=== PATIENT | female | born 1955 | race Caucasian/White ===

== ENCOUNTER 2018-07-10 10:56 | Emergency (ER) | payer OTHER ==
--- NOTE | 2018-07-10 12:08 | EDPHY ---
H & P Time Seen by Provider: 07/10/18 11:56 HPI/ROS: CHIEF COMPLAINT: Redness to periumbilical region HISTORY OF PRESENT ILLNESS: 63-year-old immunocompetent female visiting from [place], returning in a few days, complaining of 2 days of progressive erythema in the inferior umbilical region. Triage complaint states abdominal pain however patient states that she only has pain over the skin and denies deeper abdominal pain. She specifically denies: Fever, chills, nausea, vomiting, back or flank pain, abnormal bowel movements, flu-like symptoms. PRIMARY CARE PROVIDER:In [place] REVIEW OF SYSTEMS: 10 systems reviewed and negative with the exception of the elements mentioned in the history of present illness PAST MEDICAL & SURGICAL HISTORY: Breast cancer history. Hypertension. Hyperlipidemia SOCIAL HISTORY: Visiting from [place]. Nonsmoker PHYSICAL EXAM (Prior to examination, patient consented to physical exam, hands were washed and my usual and customary physical exam procedures followed) 1) GENERAL: Well-developed, well-nourished, alert and oriented. Appears to be in no acute distress. Smiling, laughing, appears well 2) HEAD: Normocephalic, atraumatic 3) HEENT: Pupils equal, round, reactive to light bilaterally. Sclera anicteric. 4) NECK: Full range of motion, no meningeal signs. 5) LUNGS: Clear auscultation bilaterally, no wheezes, no rhonchi, no retractions. 6) HEART: Regular rate and rhythm, no murmur, no heave, no gallop. 7) ABDOMEN: Erythema and induration the inferior aspect of the umbilicus is noted extending approximately 4 cm in a caudal orientation. No fluctuance. No drainage. No fetid odor. There is no umbilical hernia noted. There is no crepitus. There is no drainage or foul odor. She is tender directly over this only. Otherwise, No guarding, no rebound, no focal tenderness, negative McBurney's, negative Delgado's, negative Rovsing's, negative peritoneal sign, 8) MUSCULOSKELETAL: Moving all extremities, no focal areas of tenderness, no obvious trauma. No peripheral edema or discoloration. 9) BACK: No CVA tenderness, no midline vertebral tenderness, no fluctuance, no step-off, no obvious trauma, no visual or palpable abnormality. 10) SKIN: No rash, no petechiae. 11) Psychiatric: Patient is oriented X 3, there is no agitation. DIFFERENTIAL DIAGNOSIS: [In no particular order including but not limited to abdominal wall cellulitis, umbilical hernia, necrotizing fasciitis Smoking Status: Never smoked Constitutional: Initial Vital Signs Temperature (C) 36.8 C 07/10/18 11:08 Heart Rate 87 07/10/18 11:08 Respiratory Rate 18 07/10/18 11:08 Blood Pressure 131/57 H 07/10/18 11:08 O2 Sat (%) 95 07/10/18 11:08 O2 Delivery Mode Room Air Allergies/Adverse Reactions: No Known Allergies Allergy (Unverified 07/10/18 11:14) Home Medications: Medication Instructions Recorded Cephalexin [Keflex] 500 mg PO TID 10 Days cap 07/10/18 MDM/Departure - MDM Imaging Results: Images reviewed myself ED Course/Re-evaluation: This patient has a localized area of erythema on the inferior aspect of her umbilicus consistent with cellulitis. There is no evidence of umbilical hernia and she has no complaints of abdominal pain besides directly touching the erythema. I think that acute surgical abdominal pathology is less than likely at this time. At this time I do not think that diagnostic studies or imaging studies are indicated. I think a trial of oral antibiotics is indicated. She has no history of recurrent skin infection or known MRSA history. Monotherapy with Keflex prescribed at this time, warm packs recommended. Definitely if she develops fevers, diffuse abdominal pain or any other symptoms she needs to return to the ER immediately. She feels comfortable being discharged and feels comfortable with this plan. Verbalized understanding of instructions. My usual and customary return precautions instructions provided. I saw this patient independently based on established practice protocols. Care of patient under supervision of supervising physician Dr Pickens with whom I discussed care. - Depart Disposition: Home, Routine, Self-Care Clinical Impression: Cellulitis, abdominal wall Condition: Good Instructions: Cephalexin (By mouth), Cellulitis (ED) Additional Instructions: Return to the ER if you develop fevers, diffuse abdominal pain, vomiting, flu- like symptoms, worsening of redness, or any other symptoms that concern you. You may return to the ER in 2 days for recheck if you are still in this area. I do recommend a 2 day recheck. Prescriptions: Cephalexin [Keflex] 500 mg PO TID 10 Days cap Referrals: HARRY BARAJAS [Other] - 1-2 days without fail
[2018-07-10 13:19] LABS: PLATELET COUNT 242 10^3/uL (150-400)
[2018-07-10] MEDS ORDERED: IOPAMIDOL (ISOVUE-300) 100 ML BTL ONE (13:35)
[2018-07-10 15:40] VITALS: BP 130/67
== END 2018-07-10 15:40 | disposition home or self-care (01) ==
DX: L03.311 Cellulitis of abdominal wall (principal)
CPT/HCPCS: 74177; 76705; 99285; Q9967; 82435-PO; 82565-PO; 82947-PO; 84132-PO; 84295-PO; 84520-PO; 85014-PO

== ENCOUNTER 2018-07-14 11:44 | Inpatient (IN) | payer OTHER ==
--- NOTE | 2018-07-14 14:32 | EDPHY ---
HPI/HX/ROS/PE/MDM Narrative: CHIEF COMPLAINT: Rash HISTORY OF PRESENT ILLNESS: This patient is a 63 year old female with history of breast cancer s/p chemo and surgery six years ago. She was evaluated in this emergency department 07/10 for a small area of erythema inferior to her umbilicus. Of note, she had undergone reconstructive surgery following her diagnosis of breast cancer and had had a abdominal wall fat removed from lower abdomen and her umbilicus reconstructed. During her visit previously, she did have a CT scan indicating an area of phlegmon/cyst under her umbilical reconstruction. She was prescribed a course of Keflex at that time. Yesterday, she went for a walk and following this noted some drainage from her umbilicus as well as increasing erythema. She endorses some mild swelling of the area as well, though she states this is reduced from several days ago. She denies fever, chest pain, shortness of breath, swelling in her legs. She is not anticoagulated. Her last oral intake was around 11am today. No palpitations, vomiting, diarrhea, urinary complaints, headache, lightheadedness. No fever. No significant abdominal pain. REVIEW OF SYSTEMS: A comprehensive 10 system review of systems is otherwise negative aside from elements mentioned in the history of present illness and medical decision making. PAST MEDICAL HISTORY: Breast cancer s/p chemo and surgery six years ago. Breast reconstruction using skin and fat grafts from abdomen. SOCIAL HISTORY: Retired, , lives in [place]. Sister at bedside. VITAL SIGNS: Reviewed by me GENERAL: Well-developed, well-nourished, resting comfortably in no respiratory distress. HEENT: Atraumatic. Eyes: No icterus, no injection. Mouth: moist mucous membranes. No erythema or lesions. Neck: supple with no adenopathy. LUNGS: Clear to auscultation bilaterally, no wheezes, rhonchi or rales. CARDIAC: Regular rate and rhythm, no rubs, murmurs or gallops. ABDOMEN: Periumbilical erythema with serosanguineous drainage from the umbilical region, no purulence noted. Remainder of abdomen is soft. Soft, bowel sounds normal. BACK: No CVA tenderness. EXTREMITIES: No trauma. No edema. Range of motion is normal throughout. NEURO: Alert and oriented, grossly nonfocal. SKIN: Warm and dry, no rash. PSYCHIATRIC: Normal mentation, no agitation. Portions of this note were transcribed by a medical billing representative. I personally performed a history, physical exam, medical decision making, and confirmed accuracy of information the transcribed note. ED Course: 63 y/o female presents with periumbilical erythema with serosanguinous drainage from her umbilical area. Concern for a draining abscess. Doubt intraperitoneal connection or infection. Plan to consult with Dr. Monteiro, general surgeon. CT from 07/10/18 showed: Moderate inflammation associated with the umbilicus with possible small cyst or phlegmon in the subcutaneous tissues. Incidental small umbilical hernia containing omental fat deep to the inflammation also noted. Patient seen and evaluated in the emergency department by Dr. Rafael Monteiro. Recommend admission to the hospital for exploration, I and D of the umbilical abscess. I explained to the patient and her sister Dr. Monteiro's recommendation. Vancomycin 1 g was administered in the emergency department. MDM: Differential diagnoses for the patient's symptom complex was considered including but not limited to cellulitis, subcutaneous abscess, peritoneal drainage, stitch abscess. - Data Points Laboratory Results: Laboratory Results 07/14/18 15:45 07/14/18 15:45 Medications Given: Aripiprazole (Abilify) 2 mg PO DAILY NICANOR Stop: 01/11/19 08:59 Last Admin: 07/15/18 10:41 Dose: 2 mg Carvedilol (Coreg) 25 mg PO BIDMEAL NICANOR Stop: 01/11/19 07:59 Last Admin: 07/15/18 08:56 Dose: 25 mg Clonazepam (Klonopin) 0.25 mg PO BID NICANOR Stop: 01/11/19 08:59 Last Admin: 07/15/18 10:23 Dose: 0.25 mg Folic Acid (Folic Acid) 1 mg PO DAILY NICANOR Stop: 01/11/19 08:59 Last Admin: 07/15/18 10:24 Dose: 1 mg Gabapentin (Neurontin) 300 mg PO BID NICANOR Stop: 01/11/19 08:59 Last Admin: 07/15/18 10:24 Dose: 300 mg Potassium Chloride/Dextrose/Sod Cl (D5w 1/2 Ns W/ 20 Kcl/L) 1,000 mls @ 75 mls/ hr IV CONT NICANOR Stop: 01/10/19 21:29 Last Admin: 07/14/18 22:55 Dose: 1,000 mls Cefazolin Sodium/Dextrose (Ancef 1 Gm (Premix)) 50 mls @ 200 mls/hr IV Q8H NICANOR PRN Reason: Protocol Stop: 08/14/18 08:59 Last Admin: 07/15/18 10:15 Dose: 50 mls Ketorolac Tromethamine (Toradol) 15 mg IVP Q6HRS [facility] Stop: 07/20/18 00:00 Last Admin: 07/15/18 05:13 Dose: 15 mg Ondansetron HCl (Zofran) 4 mg IVP Q4 PRN PRN Reason: Nausea/Vomiting, Use 1st Stop: 01/10/19 21:28 Last Admin: 07/14/18 22:35 Dose: 4 mg Oxycodone/Acetaminophen (Percocet 5/325) 1 - 2 tab PO Q4 PRN PRN Reason: Pain, Severe Able to Take PO Stop: 07/24/18 21:28 Last Admin: 07/15/18 08:56 Dose: 1 tab Discontinued Medications Bupivacaine HCl (Sensorcaine 0.5% Vial) Confirm Administered Dose 30 ml .ROUTE .STK-MED ONE Stop: 07/14/18 18:19 Last Admin: 07/14/18 20:20 Dose: 30 ml Cephalexin HCl (Keflex) 500 mg PO TID NICANOR PRN Reason: Protocol Stop: 08/13/18 21:59 Last Admin: 07/14/18 22:35 Dose: 500 mg Hydromorphone HCl (Dilaudid) 0.1 - 0.4 mg IVP Q10M PRN PRN Reason: PACU, PAIN Stop: 07/14/18 21:37 Last Admin: 07/14/18 21:23 Dose: 0.2 mg Sodium Chloride (Ns) 1,000 mls @ 0 mls/hr IV EDNOW ONE; Wide Open PRN Reason: Protocol Stop: 07/14/18 14:44 Last Admin: 07/14/18 15:50 Dose: 1,000 mls Vancomycin/Sodium Chloride (Vancomycin 1 Gm (Premix)) 250 mls @ 250 mls/hr IV EDNOW ONE PRN Reason: Protocol Stop: 07/14/18 16:46 Last Admin: 07/14/18 16:28 Dose: 250 mls Lactated Ringer's (Lr) 1,000 mls @ 0 mls/hr IV ONCE ONE PRN Reason: As Directed Stop: 07/14/18 17:57 Last Admin: 07/14/18 23:09 Dose: Not Given Midazolam HCl (Versed) 2 mg IVP ONCALL ONE Stop: 07/14/18 19:17 Last Admin: 07/14/18 19:37 Dose: 2 mg General Time Seen by Provider: 07/14/18 14:30 Initial Vital Signs: Initial Vital Signs Temperature (C) 36.9 C 07/14/18 11:54 Heart Rate 78 07/14/18 11:54 Respiratory Rate 18 07/14/18 11:54 Blood Pressure 133/64 H 07/14/18 11:54 O2 Sat (%) 94 07/14/18 11:54 O2 Delivery Mode Room Air Allergies/Adverse Reactions: No Known Allergies Allergy (Verified 07/14/18 16:09) Home Medications: Medication Instructions Recorded Cephalexin [Keflex (*)] 500 mg PO TID 10 Days cap 07/10/18 ARIPiprazole [Abilify 2 mg (*)] 2 mg PO DAILY 07/14/18 Carvedilol [Coreg (*)] 25 mg PO BIDMEAL 07/14/18 DULoxetine [Cymbalta 60 MG (*)] 60 mg PO HS 07/14/18 Fluticasone Nasal [Flonase Nasal 1 sprays NASAL DAILY 07/14/18 [place]] Folic Acid [Folic Acid 1 MG (*)] 1 mg PO DAILY 07/14/18 Gabapentin [Neurontin 300 MG (*)] 300 mg PO BID 07/14/18 Losartan/Hydrochlorothiazide 1 each PO DAILY 07/14/18 [Losartan-Hctz 100-25 mg Tab] Rosuvastatin Calcium [Crestor 20mg 10 mg PO HS 07/14/18 (*)] buPROPion SR [Wellbutrin 150mg SR 150 mg PO HS 07/14/18 (*)] clonazePAM [Clonazepam] 0.25 mg PO BID 07/14/18 Cephalexin [Keflex (*)] 500 mg PO QID #28 cap 07/15/18 oxyCODONE/APAP 5/325 [Percocet 1 - 2 tab PO Q4 PRN #30 tab 07/15/18 5/325 (*)] Departure - Departure Disposition: [facility] Clinical Impression: Abscess, umbilical Condition: Fair Report Scribed for: Dara Sandra Report Scribed by: Tessa Holliday Date of Report: 07/14/18 Time of Report: 15:41
[2018-07-14] MEDS ORDERED: NS 1,000 ML IV ONE (14:43)
[2018-07-14] MEDS ORDERED: VANCOMYCIN HCL/NORMAL SALINE 250 ML IV ONE (15:47)
[2018-07-14 15:56] LABS: PLATELET COUNT 234 10^3/uL (150-400)
[2018-07-14] MEDS ORDERED: LR 1,000 ML IV ONE (17:56)
[2018-07-14] MEDS ORDERED: BUPIVACAINE 0.5% 30 ML SDV ONE (18:18)
--- NOTE | 2018-07-14 19:04 | PDANEPAE ---
ANE History of Present Illness Umbilical abscess ANE Past Medical History - Cardiovascular History Hx Hypertension: Yes - Pulmonary History Hx Oxygen in Use at Home: No Hx Sleep Apnea: Yes - Endocrine History Hx Diabetes: No - Neurological & Psychiatric Hx Neurological / Psychiatric History Comment: Depression/anxiety - GI History GERD: mild GERD Comment: Well controlled. Took meds today. ANE Review of Systems Review of Systems: ANE Patient History - Allergies Allergies/Adverse Reactions: No Known Allergies Allergy (Verified 07/14/18 16:09) - Home Medications Home medications: home medication list seen and reviewed Home Medications: ARIPiprazole [Abilify 2 mg (*)] 2 mg PO DAILY 07/14/18 [Last Taken Unknown] Carvedilol [Coreg (*)] 25 mg PO BIDMEAL 07/14/18 [Last Taken 07/14/18] DULoxetine [Cymbalta 60 MG (*)] 60 mg PO HS 07/14/18 [Last Taken 07/13/18] Fluticasone Nasal [Flonase Nasal [place] (RX)] 1 sprays NASAL DAILY 07/14/18 [ Last Taken 07/14/18] Folic Acid [Folic Acid 1 MG (*)] 1 mg PO DAILY 07/14/18 [Last Taken 07/14/18] Gabapentin [Neurontin 300 MG (*)] 300 mg PO BID 07/14/18 [Last Taken 07/14/18] Losartan/Hydrochlorothiazide [Losartan-Hctz 100-25 mg Tab] 1 each PO DAILY 07/14 [Last Taken 07/14/18] Rosuvastatin Calcium [Crestor 20mg (*)] 10 mg PO HS 07/14/18 [Last Taken ] buPROPion SR [Wellbutrin 150mg SR (*)] 150 mg PO BID 07/14/18 [Last Taken ] clonazePAM [Clonazepam] 0.25 mg PO BID 07/14/18 [Last Taken 07/14/18] - NPO status NPO Status: no food or drink >8 hours NPO Since - Liquids (Date): 07/14/18 NPO Since - Liquids (Time): 11:00 NPO Since - Solids (Date): 07/14/18 NPO Since - Solids (Time): 11:00 - Anes Hx Anes Hx: no prior problems (Possible memory issues after 13 hour surgery) - Smoking Hx Smoking Status: Never smoked - Family Anes Hx Family Anes Hx: none ANE Labs/Vital Signs - Labs Result Diagrams: 07/14/18 15:45 07/14/18 15:45 - Vital Signs Blood Pressure: 156/66 Heart Rate: 75 Respiratory Rate: 18 O2 Sat (%): 92 Height: 152.4 cm Weight: 78.925 kg ANE Physical Exam - Airway Neck exam: FROM Mallampati Score: Class 2 Mouth exam: normal dental/mouth exam - Pulmonary Pulmonary: no respiratory distress - Cardiovascular Cardiovascular: regular rate and rhythym - ASA Status ASA Status: II ANE Anesthesia Plan Anesthesia Plan: MAC (Pt requests MAC with possible GA as backup)
[2018-07-14] MEDS ORDERED: MIDAZOLAM 2 MG/2 ML VIAL IVP ONE (19:16)
[2018-07-14] MEDS ORDERED: MIDAZOLAM 2 MG/2 ML VIAL ONE (19:19)
[2018-07-14] MEDS ORDERED: fentaNYL 100 MCG/2 ML INJ ONE (19:20)
[2018-07-14] MEDS ORDERED: PROPOFOL/EMULSION 500 MG/50 ML BOTTLE IV ONE (19:20)
[2018-07-14] MEDS ORDERED: PROPOFOL 200 MG/20 ML VIAL ONE (19:20)
[2018-07-14] MEDS ORDERED: NALOXONE HCL 0.4 MG/ML INJ IVP PRN (20:37)
[2018-07-14] MEDS ORDERED: fentaNYL 100 MCG/2 ML INJ IVP PRN (20:37)
[2018-07-14] MEDS ORDERED: ONDANSETRON 4 MG/2 ML VIAL IVP PRN ×2 (20:37→21:29)
--- NOTE | 2018-07-14 20:38 | POSTANESTH ---
Post Anesthetic Evaluation Cardiovascular Status: Similar to Pre-Op Cond Respiratory Status: Similar to Pre-op Cond. Level of Consciousness/Mental Status: Can Participate in Eval Pain Control: Adequate, Prn Tx Ordered Nausea/Vomiting Control: Adequate, Prn Tx Ordered Complications Possibly Related to Anesthesia: None Noted
[2018-07-14] MEDS ORDERED: HYDROmorphONE/DILAUDID 2 MG/ML INJ ONE (20:52)
[2018-07-14] MEDS: HYDROmorphONE/DILAUDID 2 MG/ML INJ IVP PRN ×3 (20:57→21:23)
[2018-07-14] MEDS ORDERED: HYDROmorphone HCL 0.5 MG/0.5 ML SYR IVP PRN (21:29)
[2018-07-14] MEDS ORDERED: CEPHALEXIN 500 MG CAP PO SCH (22:00)
--- NOTE | 2018-07-14 22:19 | POSTOPPROG ---
Post Op Note Date of Operation: 07/14/18 Surgeon: Hosea Monteiro Anesthesiologist: JIMENEZ Anesthesia: GET(General Endotracheal) Pre-op Diagnosis: UMBILICAL ABSCESS Post-op Diagnosis: SAME Indication: DRAINAGE Procedure: I AND D OF UMBILICAL ABSCESS WITH REMOVAL FOREIGN BODY AND UMBILICAL REPAIR Findings: ABSCESS EXTENDING DOWN TO THE FASCIA INVOLVING MULTIPLE STITCHES AROUND THE Inf/Abcess present in the surg proc area at time of surgery?: Yes Depth: Deep Incisional (Fascial) EBL: Minimal Complications: 9 Specimen(s): ABSCESS WALL AND FOREIGN BODY
[2018-07-14] MEDS: KETOROLAC 15 MG/1 ML SDV IVP SCH (22:35)
[2018-07-14] MEDS: D5W 1/2 NS W/ 20 KCl/L 1,000 ML IV SCH (22:55)
[2018-07-14] MEDS: OXYCODONE/APAP 5/325 TAB PO PRN (22:55)
[2018-07-15] MEDS: KETOROLAC 15 MG/1 ML SDV IVP SCH ×3 (05:13→17:32)
[2018-07-15] MEDS: OXYCODONE/APAP 5/325 TAB PO PRN (08:56)
[2018-07-15] MEDS: CARVEDILOL 25 MG TAB PO SCH ×2 (08:56→17:31)
[2018-07-15] MEDS ORDERED: buPROPion SR 150 MG TAB PO SCH (09:00)
--- NOTE | 2018-07-15 09:15 | SOAPPROG ---
SOAP Progress Note Assessment/Plan: Assessment/Plan: 63 Y F s/p umbilical exploration c I&D. POD#1. Changed dressing. Wound is clean. Ancef. Dispo: home today vs tomorrow. Long conversation with pt and her sister. Complicated situation--she is from [place] and is visiting her sister who is uncertain that she can help care for her. Will have wound care needs. Will transition to keflex upon d/c. Discussed options with RN and also case management who will see patient. Some pain. eating breakfast. O: alert, nad ctab rrr abd soft, wound clean, deep, no erythema, minimal induration. 07/15/18 09:12 Objective: Vital Signs Temp Pulse Resp BP Pulse Ox 37.2 C 76 16 124/66 H 94 07/15/18 07:37 07/15/18 07:37 07/15/18 07:37 07/15/18 07:37 07/15/18 07:37 07/14/18 07/15/18 07/16/18 05:59 05:59 05:59 Intake Total 5227 Output Total 903 Balance 1634 ICD10 Worksheet Patient Problems: Problems Problem Status Onset Abscess, umbilical Acute
[2018-07-15] MEDS: clonazePAM 0.5 MG TAB PO SCH ×2 (10:23→21:37)
[2018-07-15] MEDS: FOLIC ACID 1 MG TAB PO SCH (10:24)
[2018-07-15] MEDS: GABAPENTIN 300 MG CAP PO SCH ×2 (10:24→21:31)
[2018-07-15] MEDS: ARIPiprazole 2 MG TAB PO SCH (10:41)
--- NOTE | 2018-07-15 11:05 | PDMN ---
Medical Necessity Medical necessity: Pt meets IP criteria per MD; est los >2 mn for eval/tx of umbilical abscess w/failed outpatient abx; requiring surgical I&D & umbilical repair, wound care, IVFs, IV abx, IV Toradol & therapy; hx breast cancer s/p chemo; per order 07/14/18
--- NOTE | 2018-07-15 11:20 | ASMTCMCOM ---
CM Note CM Note Notes: Pts case discussed w/ NICKY East and JESSE Mcdermott. Pt is a 63 y/o female admitted for umbilical abscess. Pt went to surgery w/ Dr. Monteiro to have it washed out. Pt is visiting from [place]. CM met w/ pt and her sister for dispo planning. Pt would like to go to a snf for wound care. They would like to stay in [place]. CM provided pt and sister senior blue book. They would like a referral made to [facility]. Referral sent. Triggered PASRR sent to Chintan Dorman. CM to follow. Plan: [facility] Date Signed: 07/15/2018 11:20 AM Electronically Signed By:IVONNE Boyle
[2018-07-15] MEDS: LOSARTAN/HCTZ 50/12.5 1 TAB PO SCH (11:36)
[2018-07-15] MEDS: FLUTICASONE NASAL 120 SPRAYS/16 GM MDI EACHNARE SCH ×2 (11:45→11:57)
[2018-07-15] MEDS ORDERED: ACETAMINOPHEN 325 MG TAB PO PRN (12:04)
[2018-07-15] MEDS: D5W 1/2 NS W/ 20 KCl/L 1,000 ML IV SCH (15:06)
[2018-07-15] MEDS: buPROPion SR 150 MG TAB PO SCH (21:31)
[2018-07-15] MEDS: DULoxetine 60 MG CAP PO SCH (21:31)
[2018-07-15] MEDS: ROSUVASTATIN CALCIUM 20 MG TAB PO SCH (21:37)
[2018-07-16] MEDS: KETOROLAC 15 MG/1 ML SDV IVP SCH ×5 (01:23→23:06)
[2018-07-16] MEDS: CARVEDILOL 25 MG TAB PO SCH ×2 (08:27→17:33)
[2018-07-16] MEDS: LOSARTAN/HCTZ 50/12.5 1 TAB PO SCH (08:27)
[2018-07-16] MEDS: clonazePAM 0.5 MG TAB PO SCH ×2 (08:27→21:19)
[2018-07-16] MEDS: FOLIC ACID 1 MG TAB PO SCH (08:27)
[2018-07-16] MEDS: ARIPiprazole 2 MG TAB PO SCH (08:27)
[2018-07-16] MEDS: FLUTICASONE NASAL 120 SPRAYS/16 GM MDI EACHNARE SCH (08:28)
[2018-07-16] MEDS: GABAPENTIN 300 MG CAP PO SCH ×2 (08:28→21:19)
--- NOTE | 2018-07-16 09:52 | SOAPPROG ---
SOAP Progress Note Assessment/Plan: Assessment: 63 y/o F s/p umbilical exploration with I&D of abscess S: Pain controlled. No other complaints. O: Alert Afebrile RRR No increased WOB Abdomen: soft, nontender, wound appears clean with no surrounding erythema or induration. Packing removed and replaced. Plan: Mikki had long conversation with pt and sister yesterday regarding discharge. She is from [place] and here visiting her sister. 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 From our standpoint, she can be discharged and have home care perform wound care for her. Ok to go to a SNF as well. Pt to decide. 07/16/18 09:46 Objective: Vital Signs Temp Pulse Resp BP Pulse Ox 37.0 C 71 18 142/80 H 93 07/16/18 07:39 07/16/18 08:27 07/16/18 07:39 07/16/18 08:27 07/16/18 07:39 07/15/18 07/16/18 07/17/18 05:59 05:59 05:59 Intake Total 687 550 Output Total 900 Balance -213 550 ICD10 Worksheet Patient Problems: Problems Problem Status Onset Abscess, umbilical Acute
[2018-07-16] MEDS: ROSUVASTATIN CALCIUM 20 MG TAB PO SCH (21:19)
[2018-07-16] MEDS: DULoxetine 60 MG CAP PO SCH (21:19)
[2018-07-16] MEDS: buPROPion SR 150 MG TAB PO SCH (21:19)
[2018-07-17] MEDS: KETOROLAC 15 MG/1 ML SDV IVP SCH ×2 (05:30→11:59)
[2018-07-17 08:10] VITALS: BP 152/72
[2018-07-17] MEDS: clonazePAM 0.5 MG TAB PO SCH (08:14)
[2018-07-17] MEDS: LOSARTAN/HCTZ 50/12.5 1 TAB PO SCH (08:14)
[2018-07-17] MEDS: CARVEDILOL 25 MG TAB PO SCH (08:14)
[2018-07-17] MEDS: GABAPENTIN 300 MG CAP PO SCH (08:14)
[2018-07-17] MEDS: ARIPiprazole 2 MG TAB PO SCH (08:14)
[2018-07-17] MEDS: FOLIC ACID 1 MG TAB PO SCH (08:14)
[2018-07-17] MEDS: FLUTICASONE NASAL 120 SPRAYS/16 GM MDI EACHNARE SCH (08:15)
--- NOTE | 2018-07-17 09:05 | PDIAF ---
- Diagnosis Code Status: Full Code - Medication Management Discharge Medications: Medications to Continue on Transfer Cephalexin [Keflex (*)] 500 mg PO TID 10 Days cap 07/10/18 [Last Taken 0730] ARIPiprazole [Abilify 2 mg (*)] 2 mg PO DAILY 07/14/18 [Last Taken Unknown] Carvedilol [Coreg (*)] 25 mg PO BIDMEAL 07/14/18 [Last Taken 07/14/18] DULoxetine [Cymbalta 60 MG (*)] 60 mg PO HS 07/14/18 [Last Taken 07/13/18] Fluticasone Nasal [Flonase Nasal [place]] 1 sprays NASAL DAILY 07/14/18 [Last Taken 07/14/18] Folic Acid [Folic Acid 1 MG (*)] 1 mg PO DAILY 07/14/18 [Last Taken 07/14/18] Gabapentin [Neurontin 300 MG (*)] 300 mg PO BID 07/14/18 [Last Taken 07/14/18] Losartan/Hydrochlorothiazide [Losartan-Hctz 100-25 mg Tab] 1 each PO DAILY 07/14 [Last Taken 07/14/18] Rosuvastatin Calcium [Crestor 20mg (*)] 10 mg PO HS 07/14/18 [Last Taken ] buPROPion SR [Wellbutrin 150mg SR (*)] 150 mg PO HS 07/14/18 [Last Taken ] clonazePAM [Clonazepam] 0.25 mg PO BID 07/14/18 [Last Taken 07/14/18] Cephalexin [Keflex (*)] 500 mg PO QID #28 cap 07/15/18 [Last Taken Unknown] oxyCODONE/APAP 5/325 [Percocet 5/325 (*)] 1 - 2 tab PO Q4 PRN #30 tab 07/15/18 [ Last Taken Unknown] Discharge Medications: Refer to the Discharge Home Medication list for PRN reason. - Orders Services needed: Registered Nurse Diet Recommendation: no restrictions on diet Diet Texture: Regular Texture Diet Additional Instructions: Change packing and dressing to umbilical wound every day. Packing: [email or web address] [email or web address] [email or web address], [email or web address]. Follow up in our office on Saturday. Ok to shower, but do not soak in pool or tub. - Follow Up Care Current Providers and Referrals: DR ODESSA [Other] - As per Instructions Hosea Monteiro MD [Medical Doctor] - 07/21/18
--- NOTE | 2018-07-17 09:08 | SOAPPROG ---
SOAP Progress Note Assessment/Plan: Assessment: 63 y/o F s/p umbilical exploration with I&D of abscess S: Pain controlled. No other complaints. O: Alert Afebrile RRR No increased WOB Abdomen: soft, nontender, wound appears clean with no surrounding erythema or induration. Packing removed and replaced. Plan: Mikki had long conversation with pt and sister yesterday regarding discharge. She is from [place] and here visiting her sister. 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 From our standpoint, she can be discharged and have home care perform wound care for her. Ok to go to a SNF as well. Pt to decide. 07/16/18 09:46 Subjective: Feels well today. Packing and dressing changed. Dispo to SNF today. Follow up in office on Saturday. Objective: Vital Signs Temp Pulse Resp BP Pulse Ox 37.7 C 76 16 152/72 H 96 07/17/18 08:00 07/17/18 08:14 07/17/18 08:00 07/17/18 08:14 07/17/18 08:00 07/16/18 07/17/18 07/18/18 05:59 05:59 05:59 Intake Total 550 1000 Balance 550 1000 ICD10 Worksheet Patient Problems: Problems Problem Status Onset Abscess, umbilical Acute
--- NOTE | 2018-07-17 09:56 | ASMTLACE ---
LACE Length of stay for Answers: 2 days current admission Acuity / Level of Answers: Yes Care: Did the patient have an inpatient admission? Comorbidities - select Answers: Any tumor (including all that apply lymphoma or leukemia) # of Emergency department Answers: 1-2 visits in the last 6 months Score: 8 Date Signed: 07/17/2018 09:55 AM Electronically Signed By:Libra Leger RN
--- NOTE | 2018-07-17 17:16 | ASDISCHSUM ---
Discharge Information Plan Status:SNF Medically Cleared to Leave: Discharge Date:07/17/2018 01:07 PM D/C Disposition:Long-Term Facility ADT D/C Disposition:Long-Term Facility Projected Discharge Date:07/18/2018 11:00 AM Transportation at D/C:Wheelchair Van Discharge Delay Reason: Follow-Up Date:07/18/2018 11:00 AM Discharge Slot: Final Diagnosis: Placement Information Referral Type:*Retirement/SNF Referral ID:[id number] Provider Name:[facility] Address 1:[address] Address 2: City:[place] Selection Factors: State:[place] Patient Contact Information Contact Name:SUMAYA Relationship:Sister Address: Work Phone: City: [facility] Phone: [facility] Code: Email: Financial Information Financial Class:Medicare Primary Plan Desc:MEDICARE INPATIENT Primary Plan Number:[id number] Secondary Plan Desc: Secondary Plan Number: Assessment Information LACE LACE Length of stay for Answers: 2 days current admission Acuity / Level of Answers: Yes Care: Did the patient have an inpatient admission? Comorbidities - select Answers: Any tumor (including all that apply lymphoma or leukemia) # of Emergency department Answers: 1-2 visits in the last 6 months Score: 8 Date Signed: 07/17/2018 09:55 AM Electronically Signed By:Libra Leger RN [facility] CM Progress Note CM Note CM Note Notes: Pts case discussed w/ NICKY East and JESSE Mcdermott. Pt is a 63 y/o female admitted for umbilical abscess. Pt went to surgery w/ Dr. Monteiro to have it washed out. Pt is visiting from [place]. CM met w/ pt and her sister for dispo planning. Pt would like to go to a snf for wound care. They would like to stay in [place]. CM provided pt and sister senior blue book. They would like a referral made to [facility]. Referral sent. Triggered PASRR sent to Chintan Dorman. CM to follow. Plan: [facility] Date Signed: 07/15/2018 11:20 AM Electronically Signed By:IVONNE Boyle Intervention Information Intervention Type:*Incorrect Registration Date of Service:07/14/2018 10:47 AM Patient Type:Observation Staff Member:JESSE Rubio, Dary Hours: Discipline: Severity: Comment:
--- NOTE | 2018-07-21 10:53 | GDS ---
DISCHARGE DIAGNOSIS: Umbilical abscess. SPECIAL TESTS: None. CONSULTATIONS: General surgery by Dr. Monteiro. PROCEDURES: Incision and drainage of umbilical abscess with removal of foreign body and umbilical repair. INTRAOPERATIVE FINDINGS: The patient was found to have an abscess extending down into the fascia involving multiple stitches around the fascia. HOSPITAL COURSE: This is a 63-year-old female, who presented to the emergency department complaining of tenderness and redness just below her umbilicus. She had previously gone to the emergency room regarding this issue, and had a CT scan at that time indicating an area of phlegmon/cyst under her umbilical reconstruction. She was then prescribed a course of Keflex at that time. Prior to this hospitalization, the patient noticed some drainage from her umbilicus as well as increasing erythema. She then presented to the emergency room once again. Dr. Monteiro saw the patient, who felt that the patient would benefit from incision and drainage of this umbilical abscess. He discussed all risks and options with the patient, and the patient wished to proceed. She tolerated the procedure well and her postoperative course was unremarkable. The wound was left open and packed with iodoform gauze. The patient underwent daily packing and dressing changes. She was also on daily antibiotics while in the hospital. On postoperative day #2, the patient was stable enough to be discharged. However, she is originally from [place] and was here staying with her sister. She felt that she was unable to care for her wound independently and thus chose to stay minimum 3 midnights in order to qualify for residential facility placement. The patient was discharged on 07/17/2018 to [facility] in good condition. She was discharged on an additional 7 days of Keflex q.i.d. At the time of discharge, her pain was well controlled on oral pain medications. She was discharged with additional oxycodone for pain. She was advised to follow up in our office on the following Saturday for routine wound care. The patient understood and was discharged to [facility] in good condition. /[id number]/MODL MTDD
--- NOTE | 2018-07-21 12:17 | GOP ---
DATE OF OPERATION: 07/14/2018 SURGEON: Hosea Monteiro MD [place] ATTORNEY: None. ANESTHESIA: General endotracheal. ANESTHESIOLOGIST: Dr. Rubin. PREOPERATIVE DIAGNOSIS: Umbilical abscess. POSTOPERATIVE DIAGNOSIS: Umbilical abscess plus foreign body. PROCEDURE PERFORMED: Incision and drainage of umbilical abscess with removal of foreign body and umb ilical repair. FINDINGS: Patient had an abscess extending down to the fascia and involving multiple stitches around the umbilicus. DESCRIPTION OF PROCEDURE: The patient was taken to the operating room where she received satisfactor y general endotracheal anesthesia by Dr. Rubin. Placed in supine position, prepped and draped in usual sterile fashion. A curvilinear incision was made at the base of the umbilicus, which was then extended down into the a bscess cavity. This was draining already. Necrotic tissue was excised. Some old sutures were disco homero in the wound. These were all removed as much as could be found. The dissection extended down to the fascial level. Hemostasis was obtained. The fascia was closed with a single 0 PDS figure-of- eight suture, and the wound was further debrided. No further foreign material could be identified. The wound was packed with iodoform gauze and infiltrated with 0.5% Marcaine. She tolerated the proce dure well. She was taken to the recovery room in good condition. There were no complications. ____ sign. /[id number]/MODL
== END 2018-07-17 13:07 | DRG 581 ==
LOC: OBSVTOIN 21:39 → F3E 22:12
PROVIDERS: ADMIT Surgery; ATTEND Surgery
PROC: 0W9F0ZX Drainage of Abdominal Wall, Open Approach, Diagnostic (ICD-10-PCS; principal; 2018-07-14 16:45)
DX: L02.216 Cutaneous abscess of umbilicus (principal); Z85.3 Personal history of malignant neoplasm of breast
CPT/HCPCS: 96365; 97116-GP; 97162-GP; 97165-GO; G8978-GP-CJ; G8979-GP-CI; G8987-GO-CJ; G8988-GO-CI; J0690; J1170; J1885; J2250; J2405; J2704; J3010; J3370

== ENCOUNTER 2018-08-10 11:32 | Emergency (ER) | payer OTHER ==
[2018-08-10 11:39] VITALS: BP 133/84
--- NOTE | 2018-08-10 11:43 | EDPHY ---
H & P Stated Complaint: rash on abdomen since yesterday Time Seen by Provider: 08/10/18 11:43 HPI/ROS: HPI: This is a 63-year-old female who presents with Chief Complaint: Rash on abdomen Location: Abdomen Quality: Rash Duration: Since last night Signs and Symptoms: no fever, no nausea, no vomiting, no diarrhea, no urinary symptoms, no chest pain, no shortness of breath, no wheezing, no cough, no sore throat, no neck stiffness, no joint pain, no swollen glands, no ear pain, no headache Timing: Acute, constant Severity: [id number] Context: Patient presents with last night taking a shower and taking her shirt off and noticing a rash on her abdomen. She denies any itchiness, pain, fever, upper respiratory symptoms. Has a history of recent umbilical abscess drainage by Dr. Monteiro. She has been using Telfa and Tegaderm dressing. She denies the rash being itchy. She took Benadryl last night without relief. She does not know if she had chickenpox as a child. Patient is from [place] and returns there on Saturday. Modifying Factors: Benadryl, no relief Comment: ROS: A comprehensive 10 system review of systems is otherwise negative aside from elements mentioned in the history of present illness. MEDICAL/SURGICAL/SOCIAL HISTORY: Medical history: Brst CA, HTN, hyperlipidemia. Hypertension. Surgical history: umbilical surgery 08/07 Social history: Nonsmoker. Family history noncontributory. CONSTITUTIONAL: Polite, nontoxic-appearing, female awake and alert, no obvious distress HEENT: Atraumatic and normocephalic, PERRL, EOMI. Nares patent; no rhinorrhea; no nasal mucosal edema. Tympanic membranes clear. Oropharynx clear, no exudate and moist pink mucosa. No oral lesions. Airway patent. No lymphadenopathy. No meningismus. Cardiovascular: Normal S1/S2, regular rate, regular rhythm, without murmur rub or gallop. PULMONARY/CHEST: Symmetrical and nontender. Clear to auscultation bilaterally. Good air movement. No accessory muscle usage. ABDOMEN: Soft, nondistended, nontender, no rebound, no guarding, no peritoneal signs, no masses or organomegaly. No CVAT. EXTREMITIES: 2/2 pulses, strength 5/5, no deformities, no clubbing, no cyanosis or edema. NEUROLOGICAL: no focal neuro deficits. GCS 15. SKIN: Warm and dry, from the lower thoracic upper lumbar dermatome on the right side wrapping along her right flank and around her umbilicus maculopapular rash with small vesicles in a dermatomal pattern. Good capillary refill. Source: Patient Exam Limitations: No limitations - Medical/Surgical History Hx Asthma: No Hx Chronic Respiratory Disease: No Hx Diabetes: No Hx Cardiac Disease: No Hx Renal Disease: No Hx Cirrhosis: No Hx Alcoholism: No Hx HIV/AIDS: No Hx Splenectomy or Spleen Trauma: No Other PMH: Brst CA, HTN, hyperlipidemia. umbilical surgery 08/07 - Social History Smoking Status: Never smoked Constitutional: Initial Vital Signs Temperature (C) 36.8 C 08/10/18 11:36 Heart Rate 88 08/10/18 11:36 Respiratory Rate 16 08/10/18 11:36 Blood Pressure 133/84 H 08/10/18 11:36 O2 Sat (%) 97 08/10/18 11:36 O2 Delivery Mode Room Air Allergies/Adverse Reactions: No Known Allergies Allergy (Verified 07/14/18 16:09) Home Medications: Medication Instructions Recorded Cephalexin [Keflex (*)] 500 mg PO TID 10 Days cap 07/10/18 ARIPiprazole [Abilify 2 mg (*)] 2 mg PO DAILY 07/14/18 Carvedilol [Coreg (*)] 25 mg PO BIDMEAL 07/14/18 DULoxetine [Cymbalta 60 MG (*)] 60 mg PO HS 07/14/18 Fluticasone Nasal [Flonase Nasal 1 sprays NASAL DAILY 07/14/18 [place]] Folic Acid [Folic Acid 1 MG (*)] 1 mg PO DAILY 07/14/18 Gabapentin [Neurontin 300 MG (*)] 300 mg PO BID 07/14/18 Losartan/Hydrochlorothiazide 1 each PO DAILY 07/14/18 [Losartan-Hctz 100-25 mg Tab] Rosuvastatin Calcium [Crestor 20mg 10 mg PO HS 07/14/18 (*)] buPROPion SR [Wellbutrin 150mg SR 150 mg PO HS 07/14/18 (*)] clonazePAM [Clonazepam] 0.25 mg PO BID 07/14/18 Cephalexin [Keflex (*)] 500 mg PO QID #28 cap 07/15/18 oxyCODONE/APAP 5/325 [Percocet 1 - 2 tab PO Q4 PRN #30 tab 07/15/18 5/325 (*)] Acyclovir [Zovirax] 800 mg PO 5XD #35 tab 08/10/18 Medical Decision Making ED Course/Re-evaluation: Vital signs reviewed and stable. No systemic signs. Patient is immunocompetent, no signs of ocular/otic involvement. Patient given acyclovir and politely declined any stronger pain medications than Tylenol or ibuprofen. She was counseled to follow up with her primary care provider in 3-5 days when she returns to [place] on Saturday. This patient was seen under the supervision of my secondary supervising physician. I evaluated care for this patient independently. Discussed this patient with Dr. Nj. Differential Diagnosis: Differential diagnosis includes but is not limited to varicella, small pox, DIC , necrotizing fasciitis, [id number] disease, bolus pemphigoid, contact dermatitis, erythema multiform. - Data Points Medications Given: Discontinued Medications Acyclovir (Acyclovir) 800 mg PO EDNOW ONE Stop: 08/10/18 12:07 Last Admin: 08/10/18 12:14 Dose: 800 mg Departure - Departure Disposition: Home, Routine, Self-Care Clinical Impression: Shingles rash Qualifiers: Herpes zoster complications: without complications Qualified Code(s): B02.9 - Zoster without complications Condition: Good Instructions: Shingles (ED) Additional Instructions: Healing of lesions may take up to 4 weeks. Take Tylenol 650 mg every 4 hr and/or ibuprofen 600 mg every 8 hr with food as needed for pain. Please keep rash covered until all lesions are crusted over. Follow-up with your primary care provider in 3-5 days. Return at once for any worsening symptoms or concerns. Referrals: Hosea Monteiro MD [Primary Care Provider] - Follow Up Only If Needed PCP Not In,Dictionary [Medical Doctor] - As per Instructions (Follow-up primary care provider in the next 3-5 days once you return to [place].) Prescriptions: Acyclovir [Zovirax] 800 mg PO 5XD #35 tab
[2018-08-10] MEDS ORDERED: ACYCLOVIR 400 MG TAB PO ONE (12:06)
== END 2018-08-10 12:23 | disposition home or self-care (01) ==
DX: B02.9 Zoster without complications (principal); I10 Essential (primary) hypertension; E78.5 Hyperlipidemia, unspecified